=== PATIENT | female | born 1950 | race Caucasian/White ===

== ENCOUNTER 2022-11-20 16:01 | Outpatient (CLI) | payer OTHER, SELFPAY | END 2022-11-20 16:02 | disposition home or self-care (01) | LOC: SPT 16:02 | PROVIDERS: Visit Provider Podiatrist Foot & Ankle Surgery | DX: Z46.89 Encounter for fitting and adjustment of other specified devices (principal); M79.671 Pain in right foot; M79.672 Pain in left foot | CPT/HCPCS: 97760; L3030 ==

== ENCOUNTER → 2023-10-04 10:51 | Outpatient (BNVA) | payer OTHER, SELFPAY | PROVIDERS: Visit Provider Registered Nurse Neonatal Intensive Care | DX: T14.8XXA Other injury of unspecified body region, initial encounter (principal); M18.9 Osteoarthritis of first carpometacarpal joint, unspecified; M25.531 Pain in right wrist; X58.XXXA Exposure to other specified factors, initial encounter | CPT/HCPCS: 73110 ==

== ENCOUNTER → 2024-11-01 08:13 | Outpatient (BNVA) | payer MEDICARE, SELFPAY | PROVIDERS: PCP Nurse Practitioner Family; Visit Provider Podiatrist Foot & Ankle Surgery | DX: M79.671 Pain in right foot (principal); M25.571 Pain in right ankle and joints of right foot; S86.011A Strain of right Achilles tendon, initial encounter; X58.XXXA Exposure to other specified factors, initial encounter; M76.61 Achilles tendinitis, right leg | CPT/HCPCS: 73610; 73630; 99214 ==

== ENCOUNTER 2024-12-13 10:45 | Outpatient (CLI) | payer MEDICARE, SELFPAY | END 2024-12-13 10:46 | disposition home or self-care (01) | LOC: SPT 10:48 | PROVIDERS: PCP Nurse Practitioner Family; Visit Provider Podiatrist Foot & Ankle Surgery | DX: Z46.89 Encounter for fitting and adjustment of other specified devices (principal); S86.011D Strain of right Achilles tendon, subsequent encounter; X58.XXXD Exposure to other specified factors, subsequent encounter; M92.61 Juvenile osteochondrosis of tarsus, right ankle; M21.40 Flat foot [pes planus] (acquired), unspecified foot; M20.40 Other hammer toe(s) (acquired), unspecified foot | CPT/HCPCS: L3030 ==

== ENCOUNTER → 2025-01-31 10:08 | Outpatient (BNVA) | payer MEDICARE, SELFPAY | PROVIDERS: PCP Nurse Practitioner Family; Visit Provider Podiatrist Foot & Ankle Surgery | DX: S86.011A Strain of right Achilles tendon, initial encounter (principal); M76.61 Achilles tendinitis, right leg; X58.XXXA Exposure to other specified factors, initial encounter | CPT/HCPCS: 99214 ==

== ENCOUNTER 2025-02-07 13:54 | Outpatient (CLI) | payer MEDICARE, SELFPAY ==
--- NOTE | 2025-02-07 14:30 | MRR_ITS ---
PROCEDURE INFORMATION: Exam: MR Right Lower Extremity Joint Without Contrast; Ankle Exam date and time: 02/07/2025 2:08 PM Age: 74 years old Clinical indication: Ankle; Right; Bump to back of heel x 5 months/achilles pain/patient has fallen off her porch twice; Additional info: Eval achilles tendon TECHNIQUE: Imaging protocol: Magnetic resonance imaging of the right lower extremity without contrast. Exam focused on the ankle. COMPARISON: CR XR ankle RT min 3V* [id number] 11/01/2024 8:22 AM FINDINGS: Bones/joints: No evidence of fracture or malalignment. Tibiotalar and subtalar articulations are intact. No evidence of osteonecrosis or inflammatory arthropathy. Trace joint effusions. LIGAMENTS: Distal tibiofibular syndesmosis: Intact. Anterior talofibular ligament: Intact. Posterior talofibular ligament: Intact. Calcaneofibular ligament: Intact. Deltoid ligament complex: Intact. TENDONS: Flexor tendons of foot: Intact. Tibialis posterior tendon: Intact. Peroneal tendons: Intact. Extensor tendons of foot: Intact. Tibialis anterior tendon: Intact. Achilles tendon: There is focal thickening of the Achilles tendon in the hypovascular zone to 12 mm AP with mild-moderate paratenonitis. No evidence of tear. Plantar fascia: Intact. MR/MR ankle RT wo con* [id number] IMPRESSION: 1. Mild-moderate Achilles tendinosis and paratenonitis. No evidence of tear.
== END 2025-02-07 13:55 | disposition home or self-care (01) ==
PROVIDERS: PCP Nurse Practitioner Family; Visit Provider Podiatrist Foot & Ankle Surgery
DX: S86.011A Strain of right Achilles tendon, initial encounter (principal); M76.61 Achilles tendinitis, right leg; X58.XXXA Exposure to other specified factors, initial encounter
CPT/HCPCS: 73721

== ENCOUNTER → 2025-02-15 08:53 | Outpatient (BNVA) | payer MEDICARE, SELFPAY | PROVIDERS: PCP Nurse Practitioner Family; Visit Provider Podiatrist Foot & Ankle Surgery | DX: M67.88 Other specified disorders of synovium and tendon, other site (principal) | CPT/HCPCS: 99214 ==